=== PATIENT | female | born 1945 | race Caucasian/White ===

== ENCOUNTER 2023-07-31 21:37 | Inpatient (IN) | payer MEDICARE ==
[~2023-07-31 21:37] MED LIST: Iopamidol 370 76% 100 ML VIAL ONE
[2023-07-31 22:34] VITALS: BMI 32.8
[2023-07-31] MEDS ORDERED: Guaifenesin DM 100-10/5 ML UDCUP PO PRN (23:21)
[2023-07-31] MEDS ORDERED: Glucagon 1 MG/ML KIT IM PRN (23:21)
[2023-07-31] MEDS ORDERED: Acetaminophen 325 MG TAB PO PRN (23:21)
[2023-07-31] MEDS ORDERED: HYDROcodone/Acetaminophen 5/325 mg Tablet PO PRN (23:21)
[2023-07-31] MEDS ORDERED: Dextrose 5% in Water 1,000 ML IV PRN (23:21)
[2023-07-31] MEDS ORDERED: Calcium Carbonate 500 MG ChewTAB PO PRN (23:21)
[2023-07-31] MEDS ORDERED: Dextrose 50% Abboject 50 ML SYRINGE SLOW IVP PRN (23:21)
[2023-07-31] MEDS ORDERED: Senokot S 8.6-50 MG TAB PO PRN (23:21)
[2023-07-31] MEDS ORDERED: Nitroglycerin 0.4 MG TAB (25 Tab Bottle) SL PRN (23:25)
[2023-07-31] MEDS: Atorvastatin Calcium 20 MG TAB PO SCH (23:43)
[2023-07-31] MEDS: Metoprolol Tartrate 25 MG TAB PO SCH (23:44)
[2023-08-01 00:20] LABS: Troponin I 2.931 ng/mL (< 0.028)
[2023-08-01 04:07] LABS: Troponin I 2.099 ng/mL (< 0.028)
[2023-08-01 04:09] LABS: Anion Gap 15 mmol/L (10-20); BUN (Urea Nitrogen) 11 mg/dL (9.8-20.1); Calc. Creatinine Clearance 80 mL/min (70-130); Calcium 9.9 mg/dL (7.8-10.44); Carbon Dioxide 24 mmol/L (23-31); Cardiac Risk 4.8 (Less than 4.5); Chloride 105 mmol/L (98-107); Cholesterol 152 mg/dl (< 200 Desired); Estimated GFR 69; Glucose 165 mg/dL (83-110); HDL Cholesterol 32 mg/dL (>60 Neg Risk); LDL Cholesterol, Calculated 91 mg/dL; Magnesium 2.1 mg/dL (1.6-2.6); Potassium 4.9 mmol/L (3.5-5.1); Sodium 139 mmol/L (136-145); Triglycerides 147 mg/dL (Less than 150)
[2023-08-01 04:18] LABS: #Basophils 0.08 10x3/uL (0.0-0.2); #Eosinphils 0.36 10x3/uL (0.0-0.5); #Monocytes 0.81 10x3/uL (0.0-1.1); #Neutrophils 4.45 10x3/uL (1.5-8.4); %Basophils 1.1 % (0.0-2.0); %Eosinophils 4.8 % (0.0-6.0); %Lymphocytes 23.9 % (18.0-47.0); %Monocytes 10.8 % (0.0-10.0); %Neutrophils 59.1 % (40.0-75.0); Hematocrit 40.8 % (34.9-44.5); Hemoglobin 13.3 g/dL (12.0-15.5); Mean Corpuscular HGB CONC 32.6 g/dL (32.0-36.0); Mean Corpuscular Hemoglobin 29.9 pg (27.0-33.0); Mean Corpuscular Volume 91.7 fL (81.6-98.3); Mean Platelet Volume 9.6 fL (7.4-10.4); Platelet Count 343 10x3/uL (150-450); Red Blood Cell (RBC) Count 4.45 10x6/uL (3.90-5.03); White Blood Cell (WBC) Count 7.5 10x3/uL (3.5-10.5)
[2023-08-01] MEDS: Ondansetron PF 4 MG/2 ML Vial IVP PRN (04:41)
[2023-08-01] MEDS: Enoxaparin 100 MG (1 mL) SYRINGE SC SCH (06:13)
[2023-08-01] MEDS: Metoprolol Tartrate 25 MG TAB PO SCH (08:36)
[2023-08-01] MEDS: Furosemide 20 MG TAB PO SCH (08:37)
[2023-08-01] MEDS: Cyanocobalamin (Vitamin B-12) 1,000 MCG TAB PO SCH (08:37)
[2023-08-01] MEDS: Gabapentin 300 MG CAP PO SCH (08:37)
[2023-08-01] MEDS: Aspirin 81 mg Enteric Coated Tablet PO SCH (08:37)
[2023-08-01] MEDS: Lisinopril 10 MG TAB PO SCH (08:38)
[2023-08-01] MEDS: Folic Acid 1 MG TAB PO SCH (08:39)
[2023-08-01] MEDS: HumaLOG 300 UNITS/3 ML VIAL SC PRN (08:39)
[2023-08-01] MEDS: Famotidine/PF 20 mg/2ml Vial SLOW IVP SCH (08:39)
[2023-08-01] MEDS: Bupropion 150 MG SR.TAB PO SCH (08:41)
[2023-08-01 13:35] LABS: Hemoglobin A1c 6.9 % (4.0-6.0)
[2023-08-01 20:21] VITALS: BP 129/94; TEMP 98
[2023-08-01] MEDS ORDERED: Atorvastatin Calcium 10 MG TAB PO SCH (21:00)
[2023-08-01] MEDS ORDERED: Atorvastatin Calcium 40 MG TAB PO SCH (21:00)
== END 2023-08-01 20:15 | disposition short-term general hospital (02) | DRG 281 ==
LOC: CSHTELE 21:37
PROVIDERS: ADMIT Student in an Organized Health Care Education/Training Program; ATTEND Family Medicine
DX: I21.4 Non-ST elevation (NSTEMI) myocardial infarction (principal); I48.20 Chronic atrial fibrillation, unspecified; I50.32 Chronic diastolic (congestive) heart failure; I11.0 Hypertensive heart disease with heart failure; E78.5 Hyperlipidemia, unspecified; I25.10 Atherosclerotic heart disease of native coronary artery without angina pectoris; E11.40 Type 2 diabetes mellitus with diabetic neuropathy, unspecified; G47.33 Obstructive sleep apnea (adult) (pediatric); Z95.1 Presence of aortocoronary bypass graft; M06.9 Rheumatoid arthritis, unspecified; I45.10 Unspecified right bundle-branch block; Z86.718 Personal history of other venous thrombosis and embolism; Z88.2 Allergy status to sulfonamides; Z88.1 Allergy status to other antibiotic agents; Z98.890 Other specified postprocedural states; Z82.49 Family history of ischemic heart disease and other diseases of the circulatory system; Z83.3 Family history of diabetes mellitus; E66.9 Obesity, unspecified; Z68.32 Body mass index [BMI] 32.0-32.9, adult
CPT/HCPCS: 36415; 36416; 71275; 80048; 80061; 83036; 83735; 83880; 84443; 84484; 85025; 93306; 94762; J1650; J1815; J2405; Q9967; S0028